=== PATIENT | female | born 1965 | race African-American/Black ===

== ENCOUNTER 2017-01-30 11:00 | Inpatient (IN) | payer OTHER ==
[~2017-01-30] VITALS: Ht 167.6 cm; Wt 107.0 kg
--- NOTE | ~2017-01-30 | PN ---
Unit #: [id number] #: [id number] Patient: OBIE CEJA [id number] [facility] [address] [place] [address] [id number] I MR#: [id number] NAME: OBIE CEJA. ROOM: P207 Age: 51 Sex: F Admission Date: 01/30/2017 : 1965 Attending Physician: Slade Wellington M.D. Admitting Physician: Slade Wellington M.D. Primary Care Physician: Generic Doctor Not In System [facility] PROGRESS NOTES DATE 02/02/2017 DISCUSSION Ms. Ceja is a 51-year-old white female who was seen today and chart was reviewed and case was discussed with the staff. She remains agitated, irritable and has been showing poor insight into her situation and has been pushing on wanting to leave and appears to be poorly motivated towards treatment and as such we will encourage her to show a better compliance with treatment recommendation. We will monitor her response to treatment interventions. We will make further adjustments as needed. Dictated by... Kwaku Dominique/kiko TD: 02/04/2017 03:19 JOB #: [id number] [facility] PROGRESS NOTES Page 1 of 1 X Slade Wellington MD PROGRESS NOTE
--- NOTE | ~2017-01-30 | PN ---
Unit #: [id number] #: [id number] Patient: OBIE CEJA [id number] [facility] [address] [place] [address] [id number] MR#: [id number] NAME: OBIE CEJA. ROOM: P207 Age: 51 Sex: F Admission Date: 01/30/2017 : 1965 Attending Physician: Slade Wellington M.D. Admitting Physician: Slade Wellington M.D. Primary Care Physician: Charanjit Doctor Not In System [facility] PROGRESS NOTES DATE 01/31/2017 DISCUSSION Ms. Amos is a 51-year-old white female who was seen today and chart was reviewed and case was discussed with the staff. She has been anxious, withdrawn and rather seclusive to herself. Meanwhile, she has been cooperative with treatment recommendations as she has been taking the medications and tolerating them fairly well with no reported side effects. MENTAL STATUS EXAMINATION Middle-aged white female who was casually dressed with fair personal hygiene, appears to be in no acute distress or discomfort. She was awake and alert with impaired attention and concentration. Her mood was anxious with congruent affect. She denies any suicidal or homicidal ideations. Her insight and judgement remains slightly impaired. TREATMENT PLAN 1. We will continue her on her current treatment protocol. We will monitor her response to the medication and make further adjustments as needed. 2. We will continue to follow up. Dictated by... Kwaku Dominique/kiko TD: 01/31/2017 22:55 JOB #: [id number] Unit #: [id number] #: [id number] Patient: OBIE CEJA [facility] PROGRESS NOTES Page 1 of 1 X Slade Wellington MD X PROGRESS NOTE
--- NOTE | ~2017-01-30 | PA ---
Unit #: [id number] #: [id number] Patient: OBIE CEJA [id number] [facility] [address] [place] [address] [id number] I MR#: [id number] NAME: OBIE CEJA. ROOM: P207 Age: Sex: F Admission Date: 01/30/2017 : 1965 Date of Assessment: 01/30/2017 Attending Physician: Slade Wellington M.D. Admitting Physician: Slade Wellington M.D. Primary Care Physician: Generic Doctor Not In System PSYCHIATRIC ASSESSMENT DATE OF SERVICE 01/30/2017. IDENTIFYING DATA Ms. Ceja is a 51-year-old female, who is a resident of [place], [place], and was self-referred to the hospital on a voluntary basis. CHIEF COMPLAINT "I'm just coming off the drugs and alcohol for the past 3 weeks." HISTORY OF PRESENT ILLNESS Ms. Ceja is a 51-year-old female, who presented to the hospital stating "I'm in a program and I'm really stressed out and I've not had my medication. I'm coming off drugs and alcohol for the past 3 weeks and I started arguing with people. I feel anxious and I got paranoid and I've been off my medication for the past 6 weeks from using, so I didn't get it refilled and I was using crack and last use was on 01/05/2017 and I used about 200 to 300 dollars worth a week for the past few years on and off for the past 20 years. I was clean until 2012 and then I relapsed and I was sober for 4 years and I was drinking, but I'm not alcoholic. I don't drink that much. I've been at [facility] for the past 22 days. I get nervous. I can't sit still. I'm paranoid. I think people are trying to hurt me. I thought this girl was trying to do something to me or take my things and "I'm depressed. I'm just tired of living like this, so I just want to do something to end it. I feel useless and hopeless and I didn't get to the point where I've a plan. I just feel that I don't want to be here. I miss my family. My is in [place] with my children. My income is an issue. 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 I relapsed and I lost my job and I still have the urges to use every few days. I tried to go to AA meetings every day and I'm supposed to start seeing someone at [facility] next week and hear these voices in my head and it makes me agitated. It tell me to overdose and just to kill myself, but I didn't want to do it and this has been happening in the last 2 days and I can't sleep at all. I'm in pain all day and I can't focus on nothing because of that, my weight is an issue, it makes me feel depressed and I can't keep up with things that are physical because I'm always in pain and it just makes me feel stupid." The patient does report increasing depression, feelings of hopelessness and helplessness, and suicidal ideation and as such, recommendation for inpatient level of care for safety and stabilization was made. SUBSTANCE ABUSE HISTORY Unit #: [id number] #: [id number] Patient: OBIE CEJA The patient reports history of alcohol, cannabis, cocaine, and opioid abuse, and reports that she has been using cocaine and snorting heroin, though reports cocaine to be her drug of choice. PAST PSYCHIATRIC HISTORY The patient has had history of 6 inpatient psychiatric and chemical dependency treatment at different facilities, and review of the medical records indicate that currently she is not active in any treatment program, is not seeing a psychiatrist, and is not taking any psychotropic medications. PAST MEDICAL HISTORY The patient's medical history is significant for hypertension, dyslipidemia, asthma. ALLERGIES Indocin. PERSONAL AND SOCIAL HISTORY A 51-year-old female, who reports that she is and and lives alone and has poor social support system. MENTAL STATUS EXAMINATION Middle-aged female who was casually dressed with fair personal hygiene, appears to be in no acute distress or discomfort. She was awake and alert on interaction with intact orientation to time, place, and person. Her mood was anxious and depressed with a congruent affect. Her speech was slow and restricted in content. Her thought processes were disorganized with some looseness of associations and flight of ideas and suicidal ideations. Her insight and judgment remain significantly impaired. DIAGNOSTIC IMPRESSION Psychiatric: Major depressive disorder, recurrent, moderate, without psychotic features; cocaine dependence, moderate; opioid dependence, moderate. Medical: Hypertension, dyslipidemia, asthma. Stressors: Moderate psychosocial stressors. TREATMENT PLAN 1. The patient has presented with history of substance abuse and mood disorder, and has been decompensating and will need inpatient hospitalization for safety and stabilization. We will start her back on her home medications. We will adjust the medications and monitor response. 2. Supportive therapy was provided to the patient. ESTIMATED LENGTH OF STAY 5 to 7 days. ABILITY TO HELP SELF Limited. WILLINGNESS TO HELP SELF The patient appears to be willing to help self. STRENGTHS 1. Communicative. 2. Cooperative. Unit #: [id number] #: [id number] Patient: OBIE CEJA PROBLEMS 1. Chronic dysphoric symptoms. 2. Chronic chemical dependency. 3. Poor social support system. DISCHARGE CRITERIA This will be contingent upon the patient's ability to show resolution of her depression and anxiety and her ability to stay safe and sober, particularly after discharge from the hospital. Dictated by... Slade Wellington M.D. RAMIRO/hannah TD: 01/31/2017 23:50 JOB #: [id number] PSYCHIATRIC ASSESSMENT Page 1 of 1 X Slade Wellington MD PSYCHIATRIC ASSESSMENT
--- NOTE | ~2017-01-30 | PN ---
Unit #: [id number] #: [id number] Patient: OBIE CEJA [id number] [facility] [address] [place] [address] [id number] MR#: [id number] NAME: OBIE CEJA. ROOM: P207 Age: 51 Sex: F Admission Date: 01/30/2017 : 1965 Attending Physician: Slade Wellington M.D. Admitting Physician: Slade eWllington M.D. Primary Care Physician: Generic Doctor Not In System [facility] PROGRESS NOTES DATE February 03, 2017 DISCUSSION Ms. Ceja is a 51-year-old female, who was seen today and chart was reviewed and the case was discussed with the staff. She has been anxious, withdrawn, and agitated and irritable, showing very poor insight into his situation demanding to leave AGAINST MEDICAL ADVICE, she has been put on a 72 hour hold and it was explained about that, and she was once again seen to be yelling and screaming and refused to accept responsibility for her actions and behaviors, and actively trying to mask and minimize her presentation. However, she has been taking the medications and tolerating them fairly well and recommend encouraging her to participate in treatment related activities and will monitor her response and make further adjustments as needed. Dictated by... Kwaku Dominique/kaitlin TD: 02/04/2017 12:02 JOB #: [id number] [facility] PROGRESS NOTES Page 1 of 1 X Slade Wellington MD PROGRESS NOTE
--- NOTE | ~2017-01-30 | PN ---
Unit #: [id number] #: [id number] Patient: OBIE CEJA [id number] [facility] [address] [place] [address] [id number] I MR#: [id number] NAME: OBIE CEJA. ROOM: P207 Age: 51 Sex: F Admission Date: 01/30/2017 : 1965 Attending Physician: Slade Wellington M.D. Admitting Physician: Slade Wellington M.D. Primary Care Physician: Charanjit Doctor Not In System [facility] PROGRESS NOTES DATE 02/01/2017 DISCUSSION Ms. Ceja is a 51-year-old female with mood disorder who was seen today and chart was reviewed and case was discussed with the staff. She has been anxious, withdrawn and rather seclusive to herself. Meanwhile, she has been cooperative with treatment recommendations and has been taking medications and tolerating them fairly well with no reported side effects. MENTAL STATUS EXAMINATION Middle-aged female who was casually dressed with fair personal hygiene and appears to be in no acute distress or discomfort. She was awake and alert on interaction with intact orientation. Her mood was anxious with congruent affect. She denies any suicidal or homicidal ideation. Her insight and judgement remains slightly impaired. TREATMENT PLAN 1. Will continue on current medications and treatment protocol. Will monitor her response to the medications and make further adjustments as needed. 2. Will continue to follow up. Dictated by... Kwaku Dominique/henrry TD: 02/01/2017 17:31 JOB #: [id number] Unit #: [id number] #: [id number] Patient: OBIE CEJA [facility] PROGRESS NOTES Page 1 of 1 X Slade Wellington MD X PROGRESS NOTE
--- NOTE | ~2017-01-30 | DS ---
Unit #: [id number] #: [id number] Patient: [facility]BIE CEJA [id number] [facility] [address] [id number] I MR#: [id number] NAME: OBIE CEJA. ROOM: P207 Age: 51 Sex: F Admission Date: 01/30/2017 : 1965 Discharge Date: 02/04/2017 Attending Physician: Slade Wellington M.D. Primary Care Physician: Generic Doctor Not In System DISCHARGE SUMMARY IDENTIFYING DATA Ms. Ceja is a 51-year-old female, who is a resident of [place], [place], and was self-referred to the hospital on a voluntary basis. DISCHARGE DIAGNOSES Psychiatric: Major depressive disorder, recurrent, moderate, without psychotic features; cocaine dependence, moderate; and opioid dependence, moderate. Medical: Hypertension, dyslipidemia, and asthma. Stressors: Moderate psychosocial stressors. HOSPITAL COURSE The [facility] and was oriented to the hospital environment. Routine p.r.n. medications were initiated, and she was started back on her home medications, and Wellbutrin was initiated to help her with depressive symptoms. However, the patient was seen to be showing very poor insight into her situation and very inappropriate during her stay here and was agitated, irritable, demanding to leave and was not showing any motivation towards treatment. Initially, a 72 hours hold was initiated; however, the patient has been unable to calm herself down and was not seen to be emotionally labile and was denying any suicidal ideations, intent, or plan and was not meeting criteria for further inpatient psychiatric hospitalization and as such, it was decided that she will be discharged home and will continue treatment on an outpatient basis. DISCHARGE MEDICATION Wellbutrin XL 150 mg in the morning for depression. DISCHARGE CONDITION Stable. PROGNOSIS Fair. Dictated by... Slade Wellington M.D. IAA/modl TD: 02/04/2017 19:22 JOB #: [id number] Unit #: [id number] #: [id number] Patient: OBIE CEJA DISCHARGE SUMMARY Page 1 of 1 X Slade Wellington MD DISCHARGE SUMMARY
--- NOTE | ~2017-01-30 | HP ---
Unit #: [id number] #: [id number] Patient: ANISA CEJA [id number] [place] [address] [id number] I MR#: [id number] NAME: ANISA CEJA. ROOM: P207 Age: 51 Sex: F Admission Date: 01/30/2017 : 1965 Attending Physician: Slade Wellington M.D. Admitting Physician: Slade Wellington M.D. Primary Care Physician: Generic Doctor Not In System HISTORY AND PHYSICAL HISTORY OF PRESENT ILLNESS Anisa is a 51 year old admitted to [address] [place] [address] because of her drug use. She smokes crack cocaine. She does report she has been "clean" for 30 days. PAST MEDICAL HISTORY 1. History of illicit substance abuse to include crack cocaine. 2. High blood pressure. 3. COPD. 4. Hyperlipidemia. 5. History of PUD. a. History of UGI bleed. PAST SURGICAL HISTORY Nothing reported. ALLERGIES Indocin (anaphylaxis). SOCIAL HISTORY Smokes two cigarettes on a daily basis. Denies alcohol. Admits to a history of illicit substance abuse to include crack cocaine. FAMILY HISTORY Medically noncontributory. REVIEW OF SYSTEMS CONSTITUTIONAL: No fever or chills. HEENT: Denies any sore throat, ear pain or runny nose. CARDIOVASCULAR: Denies chest pain, irregular heart rhythm or palpitations. CHEST: Denies shortness of breath or cough. No hemoptysis. GASTROINTESTINAL: Denies nausea, vomiting, diarrhea or chronic constipation. ENDOCRINE: Denies history of increased thirst or urination. No recent significant weight loss or gain. GENITOURINARY: Denies dysuria, frequency, or hematuria. SKIN: Denies any rashes. HEMATOLOGIC: Denies history of increased bleeding or bruising. MUSCULOSKELETAL: Denies any hot, swollen joints. No generalized muscle pain. NEUROLOGIC: Denies problems with vision or speech. No frequent, severe headaches. No numbness, tingling or weakness in any extremities. Denies loss of bladder or bowel control. Unit #: [id number] #: [id number] Patient: ANISA CEJA CURRENT MEDICATIONS 1. Lotensin 20 mg q.a.m. 2. Norvasc 10 mg q.a.m. 3. Hydrochlorothiazide 25 mg q day 4. Claritin 10 mg q day 5. Lipitor 20 mg q day 6. Pepcid 20 mg b.i.d. 7. Proventil inhaler p.r.n. 8. Milk of Magnesia p.r.n. 9. Maalox p.r.n. 10. Tylenol p.r.n. 11. Nicotine patch 21 mg q day PHYSICAL EXAMINATION GENERAL: Alert, well-nourished, in no apparent distress. VITAL SIGNS: Blood pressure 113/74, heart rate 60, respirations 16, temperature 98.6. WEIGHT: 236 pounds. HEIGHT: 5'6". SKIN: Warm and dry without rash or lesion. HEENT: Normocephalic. TMs not viewed. Oral and nasal passages clear. Conjunctivae clear. Pupils equal, round and reactive to light and accommodation. Extraocular movements intact. NECK: Supple without lymphadenopathy or thyromegaly. HEART: Regular rate and rhythm without murmur. LUNGS: Clear. ABDOMEN: Soft, nontender. : Not done. EXTREMITIES: No evidence of cyanosis, clubbing or edema. Moves all extremities without focal deficit. NEUROLOGICAL: Grossly within normal limits. Cranial Nerves: II: Visual orourke are intact. III, IV AND : Extraocular movements are intact. Pupils are equal, round and reactive to light. V: Facial sensation is grossly normal. VII: Facial movements and expression are normal. VIII: Auditory acuity grossly intact. IX, X: Uvula is midline. Phonation is normal. XI: Patient shrugs shoulders and turns head normally. XII: Tongue protrudes in the midline. Sensory and Motor Function: Sensory and motor sensation is grossly normal. Motor: moves all extremities well. Coordination: Gait is normal. Deep Tendon Reflexes: Intact. IMPRESSION Psychiatric admission RECOMMENDATIONS PSYCHIATRIC: Per psychiatrist. MEDICAL: 1. I see no contraindications to participating in facility's activities. 2. Continue Lotensin, Norvasc, HCTZ, Lipitor and Proventil inhaler. MEDICAL PROGNOSIS Good. MEDICAL CONDITION Stable. Unit #: [id number] #: [id number] Patient: ANISA CEJA Dictated by... Blanquita Romo P.A.-C. for Alexandr Rowland M.D. TIMMY/kiko TD: 01/30/2017 23:03 JOB #: [id number] HISTORY AND PHYSICAL Page 1 of 1 X Blanquita Romo HISTORY AND PHYSICAL
[2017-01-31 07:59] LABS: URINE SOURCE CLEAN CATCH
[2017-01-31 09:50] LABS: URINE APPEARANCE TURBID; URINE BILIRUBIN NEG (NEG); URINE BLOOD NEG (NEG); URINE COLOR YELLOW; URINE GLUCOSE NEG (NEG); URINE KETONE NEG (NEG); URINE LEUKOCYTE ESTERASE NEG (NEG); URINE NITRATE NEG (NEG); URINE PROTEIN NEG (NEG); URINE SPECIFIC GRAVITY 1.027 (1.003-1.035)
[2017-01-31 09:57] LABS: BASOPHIL% 0.4 % (0-2.5); EOSINOPHIL# 0.3 X10e3 (0-0.7); EOSINOPHIL% 4.2 % (0.0-7.0); HEMATOCRIT 41.5 % (35.0-45.0); HEMOGLOBIN 13.6 gm/dL (12.0-16.0); LYMPHOCYTE# 2.5 X10e3 (1.0-3.5); LYMPHOCYTE% 32.7 % (17.0-45.0); MEAN CORPUSCULAR HEMOGLOBIN 30.4 PG (28-34); MEAN CORPUSCULAR HGB CONC 32.7 g/dL (30-36); MEAN PLATELET VOLUME 8.6 FL (6.5-11.5); MONOCYTE# 0.4 X10e3 (0-1.0); MONOCYTE% 5.3 % (3.0-12.0); NEUTROPHIL# 4.4 X10e3 (1.5-7.1); NEUTROPHIL% 57.4 % (40-75); PLATELET COUNT 267 X10e3 (140-420); RED BLOOD COUNT 4.46 X10e (3.90-5.30); RED CELL DISTRIBUTION WIDTH 13.4 % (11.0-15.5); WHITE BLOOD COUNT 7.6 X10e3 (4.0-10.5)
[2017-01-31 10:06] LABS: DIFF IND NO
[2017-01-31 10:38] LABS: AMPHETAMINE NEG (NEG); BARBITURATES NEG (NEG); BENZODIAZEPINES NEG (NEG); COCAINE NEG (NEG); MARIJUANA NEG (NEG); OPIATES NEG (NEG); TRICYCLIC ANTIDEPRESSANTS NEG (NEG); U METHADONE NEG (NEG)
[2017-01-31 10:53] LABS: THYROID STIMULATING HORMONE 2.23 uIU/ml (0.34-5.60)
[2017-01-31 10:58] LABS: ALBUMIN SERUM 3.4 g/dL (3.5-5.0); BILIRUBIN,TOTAL 0.6 mg/dL (0.2-2.0); BUN/CREATININE RATIO 18.75; CREATININE SERUM 0.8 mg/dL (0.6-1.4); GLOM FILT RATE Estimated 98.3 mL/min (>60); POTASSIUM 4.5 mmol/L (3.5-5.1); PROTEIN TOTAL SERUM 6.5 g/dL (6.0-8.3)
[2017-01-31 11:00] LABS: FREE THYROXIN (T4) 0.9 ng/dL (0.58-1.64)
== END 2017-02-04 10:05 | disposition home or self-care (01) | DRG 885 ==
LOC: P2S 12:50
PROVIDERS: Psychiatry & Neurology Psychiatry
DX: F33.1 Major depressive disorder, recurrent, moderate (principal); F11.20 Opioid dependence, uncomplicated; R45.851 Suicidal ideations; F14.20 Cocaine dependence, uncomplicated; I10 Essential (primary) hypertension; E78.5 Hyperlipidemia, unspecified; J45.909 Unspecified asthma, uncomplicated; Z88.6 Allergy status to analgesic agent; F17.210 Nicotine dependence, cigarettes, uncomplicated
CPT/HCPCS: 80053; 80307; 81003; 84439; 84443; 85025